=== PATIENT | male | born 1970 | race Caucasian/White ===

== ENCOUNTER 2021-02-02 16:56 | Observation (INO) ==
[2021-02-02 17:45] LABS: Appearance Urine Clear (Clear); Bacteria Urine Automated Negative (Negative); Basophils # (auto) 0.02 K/uL (0-0.2); Basophils % (auto) 0.2 %; Bilirubin Urine Negative (Negative); Blood Urine 1+ (Negative); Color Urine Dark Yellow; Eosinophils # (auto) 0.04 K/uL (0-0.5); Eosinophils % (auto) 0.3 %; Glucose Urine UA Negative (Negative); Immature Granulocytes # (auto) 0.02 K/uL (0.00-0.02); Immature Granulocytes % (auto) 0.2 %; Ketones Urine Trace (Negative); Leukocyte Esterase Urine Trace (Negative); Lymphocytes # (auto) 3.59 K/uL (1.2-3.4); Lymphocytes % (auto) 28.2 %; Mean Corpuscular Hemoglobin 29.3 pg (25-34); Mean Corpuscular Hgb Conc 34.8 g/dL (32-36); Mean Corpuscular Volume 84.1 fL (80-100); Mean Platelet Volume 9.3 fL (7.4-10.4); Monocytes # (auto) 0.83 K/uL (0.11-0.59); Monocytes % (auto) 6.5 %; Neutrophils # (auto) 8.22 K/uL (1.4-6.5); Neutrophils % (auto) 64.6 %; Nitrite Urine Negative (Negative); Platelet Count 284 K/uL (130-400); Protein Urine Negative (Negative); RBC Urine Automated 0-4 /hpf (0-4); RDW Coefficient of Variation 13.6 % (11.5-14.5); RDW Standard Deviation 41.3 fL (36.4-46.3); Red Blood Count 5.47 M/uL (4.7-6.1); Specific Gravity Urine 1.021 (1.000-1.030); Urobilinogen Urine Negative (Negative); White Blood Count 12.72 K/uL (4.8-10.8)
[2021-02-02 18:06] LABS: Albumin Level 3.8 gm/dl (3.4-5.0); Calcium 9.2 mg/dl (8.5-10.1); Creatinine Clr Calc Pharmacy 126.5 ml/min; Est GFR (African American) 99.4 ml/min; Est GFR (Non-African American) 85.7 ml/min; Potassium 3.6 mmol/L (3.5-5.1)
[2021-02-02 18:09] LABS: Albumin Globulin Ratio 0.9 (0.9-2); Bilirubin,Total 0.6 mg/dl (0.2-1); Globulin 4.3 gm/dl (2.5-4.0); Total Protein 8.1 gm/dl (6.4-8.2)
--- NOTE | 2021-02-02 20:41 | Emergency Department Note ---
History of Present Illness General Chief complaint: Abdominal Pain Stated complaint: Constipation, AB PAIN, BLOODY STOOL Time Seen by Provider: 02/02/21 20:22 Source: patient History of Present Illness Provider complaint: Abdominal pain Onset (ago): week(s) (6) Location: abdomen Radiation: non-radiation Pain Consistency: + intermittent Maximum Pain Intensity: 0 Quality: + other (Cramping constipation pain) Relieved By: + other (Having a bowel movement) Associated symptoms: + nausea/vomiting; no chest pain, no cough, no fever/chills, no headaches or no shortness of breath This is a 50-year-old male who presents with a 6-week history of intermittent abdominal pain. Patient states that it feels like a crampy "constipation" pain across his abdomen. It is better after he has a bowel movement. He currently rates it a 0 out of 10 in severity. It only comes on when he has to have a bowel movement. He did feel constipated last week but then started having diarrhea which she describes as very watery with big chunks. His symptoms seem to get worse about 3 days ago. Yesterday he was pushing very hard to have a bowel movement and he started having bleeding with his bowel movements. He describes it as bright red blood. He subsequently went again and he only had blood without stool. He denies any fever, cough or cold symptoms, chest pain, shortness of breath or hematuria or urinary symptoms. He does state that he has had spasms in his lower back as well as the shoulder on and off for 6 weeks as well but also states that he has had back spasms for many years. He states he has not seen a doctor in over a year due to the pandemic. His is not ill with similar symptoms and he denies any recent antibiotic use or foreign travel. Home Medications Medication Instructions Recorded Confirmed Type Unknown Cholesterol Medicine 0.5 tab PO DAILY 02/02/21 02/02/21 History ibuprofen 200 mg tablet (Advil) 200 mg PO Q6H PRN 02/02/21 02/02/21 History Allergies Allergy/AdvReac Type Severity Reaction Status Date / Time grass pollen Allergy Congested, Unverified 02/02/21 21:49 Itchy eyes tree and shrub pollen Allergy Congested, Unverified 02/02/21 21:49 Itchy eyes weed pollen Allergy Congested,Itchy Unverified 02/02/21 21:49 eyes Past Med/Surg History Medical History High cholesterol Social History Smoking Status: Never smoker Feels Safe at Home: Yes Review of Systems See HPI for pertinent positives & negatives. and A total of 10 systems reviewed and were otherwise negative Physical Exam Vital Signs Vital Signs - 24 hr 02/02/21 17:08 02/02/21 21:46 02/02/21 23:00 Temperature 36.7 C Temperature Source Temporal Artery Scan Pulse Rate 80 Pulse Rate [Finger] 70 70 Respiratory Rate 20 18 18 Respiratory Effort / Characteristics Normal for Patient Blood Pressure 161/101 H Blood Pressure [Right Arm] 159/101 H 141/89 H Blood Pressure Mean 121 Blood Pressure Mean [Right Arm] 120 106 Blood Pressure Position [Right Arm] Lying Pulse Oximetry 96 94 97 Oxygen Delivery Method Room Air Room Air Sepsis Recent Fever Within 48 Hours No Sepsis New/Unexplained Change in Mental Status N/A Sepsis Action Taken by Nursing No Action Required Constitutional: Vital signs reviewed. Eyes: Pupils are equal round reactive to light. Conjunctiva are noninjected. ENT: Pharynx is clear without erythema or exudate. Mucous membranes are dry. Neck supple without meningeal signs. Respiratory: Clear to auscultation bilaterally. Breath sounds are equal bilaterally. Cardiovascular: Regular rate and rhythm. No rubs or gallops. GI: Soft, nondistended and nontender. Bowel sounds are present. Rectal: Bright red blood visible around the anus. There is no anal fissures or external hemorrhoids. Musculoskeletal: No peripheral edema. No lower extremity tenderness. Integumentary: No cyanosis. or jaundice. Neurological: The patient is awake and alert. No focal deficits. Psychiatric: Slightly anxious. Course Administered Medications Discontinued Medications Sodium Chloride (Nss 1000ml) 1,000 mls @ 999 mls/hr IV .Q1H1M ONE Stop: 02/02/21 21:44 Last Infusion: 02/02/21 23:59 Dose: 0 mls/hr Documented by: [id number] Admin: 02/02/21 21:39 Dose: 999 mls/hr Documented by: [id number] Ioversol (Optiray 320 125ml) 110 ml IV ONCE ONE Stop: 02/02/21 21:11 Last Admin: 02/02/21 21:10 Dose: 110 ml Documented by: [id number] Medical Decision Making Differential Diagnosis Gastroenteritis, diverticulitis, foodborne illness, colonic mass, hemorrhoids, anal fissure, anemia, IBS Medical Records Attestation: I reviewed the patient's medical records. I did perform a limited focused review of portions of the patient's old chart on the electronic medical record. The patient has had no recent pertinent visits to this hospital. Home Medications Current Medication List: was personally reviewed by me Laboratory Data Attestation: I reviewed the patient's lab results. Result diagrams: 02/02/21 21:01 02/02/21 17:20 Lab Results 02/02/21 02/02/21 02/02/21 Range/Units 17:20 17:20 17:20 WBC 12.72 H (4.8-10.8) K/uL RBC 5.47 (4.7-6.1) M/uL Hgb 16.0 (14.0-18.0) g/dL Hct 46.0 (42-52) % MCV 84.1 (80-100) fL MCH 29.3 (25-34) pg MCHC 34.8 (32-36) g/dL RDW Std Deviation 41.3 (36.4-46.3) fL RDW Coeff of Stephanie 13.6 (11.5-14.5) % Plt Count 284 (130-400) K/uL MPV 9.3 (7.4-10.4) fL Immature Gran % (Auto) 0.2 % Neut % (Auto) 64.6 % Lymph % (Auto) 28.2 % [place] % (Auto) 6.5 % Eos % (Auto) 0.3 % Baso % (Auto) 0.2 % Neut # (Auto) 8.22 H (1.4-6.5) K/uL Lymph # (Auto) 3.59 H (1.2-3.4) K/uL [place] # (Auto) 0.83 H (0.11-0.59) K/uL Eos # (Auto) 0.04 (0-0.5) K/uL Baso # (Auto) 0.02 (0-0.2) K/uL Immature Gran # (Auto) 0.02 (0.00-0.02) K/uL Sodium 139 (136-145) mmol/L Potassium 3.6 (3.5-5.1) mmol/L Chloride 109 H (98-107) mmol/L Carbon Dioxide 26 (21-32) mmol/L Anion Gap 4.0 (3-11) BUN 8 (7-18) mg/dl Creatinine 1.01 (0.6-1.4) mg/dl Est Cr Clr Drug Dosing 126.5 ml/min Est GFR ( Amer) 99.4 ml/min Est GFR (Non-Af Amer) 85.7 ml/min BUN/Creatinine Ratio 8.0 L (10-20) Glucose 106 H (70-99) mg/dl Calcium 9.2 (8.5-10.1) mg/dl Total Bilirubin 0.6 (0.2-1) mg/dl AST 23 (15-37) U/L ALT 42 (12-78) U/L Alkaline Phosphatase 80 (45-117) U/L Total Protein 8.1 (6.4-8.2) gm/dl Albumin 3.8 (3.4-5.0) gm/dl Globulin 4.3 H (2.5-4.0) gm/dl Albumin/Globulin Ratio 0.9 (0.9-2) Lipase 137 (73-393) U/L Urine Color Dark Yellow Urine Appearance Clear (Clear) Urine pH 6.0 (4.5-7.5) Ur Specific [place] 1.021 (1.000-1.030) Urine Protein Negative (Negative) Urine Glucose (UA) Negative (Negative) Urine Ketones Trace H (Negative) Urine Blood 1+ H (Negative) Urine Nitrite Negative (Negative) Urine Bilirubin Negative (Negative) Urine Urobilinogen Negative (Negative) Ur Leukocyte Esterase Trace H (Negative) Urine WBC (Auto) 5-10 H (0-5) /hpf Urine RBC (Auto) 0-4 (0-4) /hpf U Hyaline Cast (Auto) 5-10 H (0-5) /lpf U Epithel Cells (Auto) 10-20 H (0-5) /lpf Urine Bacteria (Auto) Negative (Negative) Stl C. diff Tox B Gene (Neg) COVID-19 Eval Order SARS-CoV-2 (PCR) (Negative) 02/02/21 02/02/21 02/02/21 Range/Units 21:01 21:42 21:42 WBC (4.8-10.8) K/uL RBC (4.7-6.1) M/uL Hgb 15.4 (14.0-18.0) g/dL Hct 44.2 (42-52) % MCV (80-100) fL MCH (25-34) pg MCHC (32-36) g/dL RDW Std Deviation (36.4-46.3) fL RDW Coeff of Stephanie (11.5-14.5) % Plt Count (130-400) K/uL MPV (7.4-10.4) fL Immature Gran % (Auto) % Neut % (Auto) % Lymph % (Auto) % [place] % (Auto) % Eos % (Auto) % Baso % (Auto) % Neut # (Auto) (1.4-6.5) K/uL Lymph # (Auto) (1.2-3.4) K/uL [place] # (Auto) (0.11-0.59) K/uL Eos # (Auto) (0-0.5) K/uL Baso # (Auto) (0-0.2) K/uL Immature Gran # (Auto) (0.00-0.02) K/uL Sodium (136-145) mmol/L Potassium (3.5-5.1) mmol/L Chloride (98-107) mmol/L Carbon Dioxide (21-32) mmol/L Anion Gap (3-11) BUN (7-18) mg/dl Creatinine (0.6-1.4) mg/dl Est Cr Clr Drug Dosing ml/min Est GFR ( Amer) ml/min Est GFR (Non-Af Amer) ml/min BUN/Creatinine Ratio (10-20) Glucose (70-99) mg/dl Calcium (8.5-10.1) mg/dl Total Bilirubin (0.2-1) mg/dl AST (15-37) U/L ALT (12-78) U/L Alkaline Phosphatase (45-117) U/L Total Protein (6.4-8.2) gm/dl Albumin (3.4-5.0) gm/dl Globulin (2.5-4.0) gm/dl Albumin/Globulin Ratio (0.9-2) Lipase (73-393) U/L Urine Color Urine Appearance (Clear) Urine pH (4.5-7.5) Ur Specific [place] (1.000-1.030) Urine Protein (Negative) Urine Glucose (UA) (Negative) Urine Ketones (Negative) Urine Blood (Negative) Urine Nitrite (Negative) Urine Bilirubin (Negative) Urine Urobilinogen (Negative) Ur Leukocyte Esterase (Negative) Urine WBC (Auto) (0-5) /hpf Urine RBC (Auto) (0-4) /hpf U Hyaline Cast (Auto) (0-5) /lpf U Epithel Cells (Auto) (0-5) /lpf Urine Bacteria (Auto) (Negative) Stl C. diff Tox B Gene (Neg) COVID-19 Eval Order Covid19 at [facility] SARS-CoV-2 (PCR) NEGATIVE (Negative) 02/02/21 Range/Units 22:27 WBC (4.8-10.8) K/uL RBC (4.7-6.1) M/uL Hgb (14.0-18.0) g/dL Hct (42-52) % MCV (80-100) fL MCH (25-34) pg MCHC (32-36) g/dL RDW Std Deviation (36.4-46.3) fL RDW Coeff of Stephanie (11.5-14.5) % Plt Count (130-400) K/uL MPV (7.4-10.4) fL Immature Gran % (Auto) % Neut % (Auto) % Lymph % (Auto) % [place] % (Auto) % Eos % (Auto) % Baso % (Auto) % Neut # (Auto) (1.4-6.5) K/uL Lymph # (Auto) (1.2-3.4) K/uL [place] # (Auto) (0.11-0.59) K/uL Eos # (Auto) (0-0.5) K/uL Baso # (Auto) (0-0.2) K/uL Immature Gran # (Auto) (0.00-0.02) K/uL Sodium (136-145) mmol/L Potassium (3.5-5.1) mmol/L Chloride (98-107) mmol/L Carbon Dioxide (21-32) mmol/L Anion Gap (3-11) BUN (7-18) mg/dl Creatinine (0.6-1.4) mg/dl Est Cr Clr Drug Dosing ml/min Est GFR ( Amer) ml/min Est GFR (Non-Af Amer) ml/min BUN/Creatinine Ratio (10-20) Glucose (70-99) mg/dl Calcium (8.5-10.1) mg/dl Total Bilirubin (0.2-1) mg/dl AST (15-37) U/L ALT (12-78) U/L Alkaline Phosphatase (45-117) U/L Total Protein (6.4-8.2) gm/dl Albumin (3.4-5.0) gm/dl Globulin (2.5-4.0) gm/dl Albumin/Globulin Ratio (0.9-2) Lipase (73-393) U/L Urine Color Urine Appearance (Clear) Urine pH (4.5-7.5) Ur Specific [place] (1.000-1.030) Urine Protein (Negative) Urine Glucose (UA) (Negative) Urine Ketones (Negative) Urine Blood (Negative) Urine Nitrite (Negative) Urine Bilirubin (Negative) Urine Urobilinogen (Negative) Ur Leukocyte Esterase (Negative) Urine WBC (Auto) (0-5) /hpf Urine RBC (Auto) (0-4) /hpf U Hyaline Cast (Auto) (0-5) /lpf U Epithel Cells (Auto) (0-5) /lpf Urine Bacteria (Auto) (Negative) Stl C. diff Tox B Gene Negative Cdiff Gene (Neg) COVID-19 Eval Order SARS-CoV-2 (PCR) (Negative) Imaging Data Radiologist's Impression: Abdomen/Pelvis CT 02/02/21 20:40 CT abd pelvis IV con only CLINICAL INDICATION: MN ^C11 125 ML ^abd pain and bleeding eval for divertic. TECHNIQUE: Helical axial images of the abdomen and pelvis were obtained and d isplayed. Automated dose lowering techniques and/or adjustment according to patient size were utilized for this exam. This exam was performed with intravenous contrast. COMPARISON: None available at the time of this dictation. FINDINGS: Lower chest: No acute abnormality Liver: Hepatic steatosis is noted. Gallbladder and biliary tree: No calcified gallstones. Normal caliber wall. No intra- or extrahepatic biliary ductal dilation. Pancreas: Unremarkable, no focal lesions. Spleen: Unremarkable. Adrenals: Unremarkable. Kidneys and ureters: Unremarkable. Bladder: Limited evaluation due to underdistention. Reproductive organs: Unremarkable. Bowel: There is wall thickening and fat stranding of the distal descending colon. The appendix is normal. A hiatal hernia is seen. Lymph nodes Retroperitoneal: There is a round retroperitoneal lymph node measuring approximately 10 mm in diameter near the gastroesophageal junction. Subcentimeter jamey hepatis lymph nodes are seen. Mesenteric: Unremarkable. Pelvic: Unremarkable. Peritoneum: Normal Vessels: Atherosclerotic calcifications are seen. Abdominal wall: Left fat containing inguinal hernia. Bones: Unremarkable. IMPRESSION: 1. Wall thickening and fat stranding is seen surrounding the distal descending colon which likely reflects infectious/inflammatory enteritis. No significant diverticular disease is seen. The appendix is normal. 2. Prominent retroperitoneal lymph node is nonspecific. ACT 112: Negative or not required by law. Electronically signed by: Glenn Webb M.D. 02/02/2021 9:20 PM MDM Narrative I did evaluate the patient as noted above. Patient is presenting with abdominal pain which got worse over the weekend and now he has rectal bleeding. Rectal examination shows gross blood. IV access was established. I did place an order for continuous cardiac monitoring. The monitor showed normal sinus rhythm at a rate of 72 bpm. I did order and review the patient's blood work as noted in the electronic medical record. His white count is elevated at 12.7. Hemoglobin is 16. Platelet count is within normal limits. Electrolytes, LFTs and lipase are unremarkable. I did repeat another H&H which came back 15.4 and 44 respectively. He was then given a liter normal saline IV. I did order a CT of the abdomen and pelvis. I did review the images myself as well as the radiology report as described above. He appears to have a colitis of the descending colon. C. difficile testing is negative. Stool culture is pending. His stool sample looked very bloody. I did discuss the test results with the patient and his . I did recommend hospitalization given his ongoing bleeding and drop in his H&H. He remains hemodynamically stable. I did discuss the case with the hospitalist and case planner. Covid screening test is negative. Impression & Plan Acute GI bleeding, Colitis Discharge Plan Visit Data Chief Complaint: Abdominal Pain Stated Complaint: Constipation, AB PAIN, BLOODY STOOL ED Provider: Seth Cuellar Discharge Problem: Acute GI bleeding, Colitis Patient Disposition: Being Evaluated by Hospitalist Forms Stand Alone Forms: [facility] Prescriptions Prescriptions: No Action ibuprofen [Advil] 200 mg Tablet 200 mg PO Q6H PRN (Reason: Pain) RF: 0 Unknown Cholesterol Medicine 0.5 tab PO DAILY RF: 0 Referrals Referrals: PCP,NO [Physician] -
[2021-02-02] MEDS ORDERED: SODIUM CHLORIDE 0.9% 1000ML 1,000 ML IV ONE (20:44)
[2021-02-02] MEDS ORDERED: OPTIRAY 320 125ml IV ONE (21:10)
[2021-02-02 21:13] LABS: Hematocrit (blood only) 44.2 % (42-52); Hemoglobin 15.4 g/dL (14.0-18.0)
--- NOTE | 2021-02-02 21:22 | CT Scan Report ---
CT abd pelvis IV con only CLINICAL INDICATION: MN ^C11 125 ML ^abd pain and bleeding eval for divertic. TECHNIQUE: Helical axial images of the abdomen and pelvis were obtained and displayed. Automated dose lowering techniques and/or adjustment according to patient size were utilized for this exam. This e xam was performed with intravenous contrast. COMPARISON: None available at the time of this dictation. FINDINGS: Lower chest: No acute abnormality Liver: Hepatic steatosis is noted. Gallbladder and biliary tree: No calcified gallstones. Normal caliber wall. No intra- or extrahepatic biliary ductal dilation. Pancreas: Unremarkable, no focal lesions. Spleen: Unremarkable. Adrenals: Unremarkable. Kidneys and ureters: Unremarkable. Bladder: Limited evaluation due to underdistention. Reproductive organs: Unremarkable. Bowel: There is wall thickening and fat stranding of the distal descending colon. The appendix is nor mal. A hiatal hernia is seen. Lymph nodes Retroperitoneal: There is a round retroperitoneal lymph node measuring approximately 10 mm in diamete r near the gastroesophageal junction. Subcentimeter jamey hepatis lymph nodes are seen. Mesenteric: Unremarkable. Pelvic: Unremarkable. Peritoneum: Normal Vessels: Atherosclerotic calcifications are seen. Abdominal wall: Left fat containing inguinal hernia. Bones: Unremarkable. IMPRESSION: 1. Wall thickening and fat stranding is seen surrounding the distal descending colon which likely re flects infectious/inflammatory enteritis. No significant diverticular disease is seen. The appendix i s normal. 2. Prominent retroperitoneal lymph node is nonspecific. ACT 112: Negative or not required by law. Electronically signed by: Glenn Webb M.D. 02/02/2021 9:20 PM
--- NOTE | 2021-02-03 02:53 | History and Physical Report ---
DATE OF ADMISSION: 02/03/2021. CHIEF COMPLAINT: Abdominal pain. HISTORY OF PRESENT ILLNESS: A 50-year-old male with past medical history significant for hypertension, hyperlipidemia, presents with ongoing abdominal pain since last 2 weeks. Abdominal pain is in the left lower quadrant and he is also having on and off diarrhea and constipation since last 2 weeks. The abdominal pain is improved, but last night, he felt like going to bathroom, but when he tried to move his bowels, some blood has come out. It went on until 4:00 p.m. in the afternoon, when he decided to come to the hospital. Currently, the pain is improved. In the last 2 weeks, he also couple of times, sprained his back and also his right shoulder, but those are improved now. No nausea, no vomiting. Last 2 days, his appetite is down and is feeling sick to his stomach, nauseous. Denies any fever or chills. No chest pain, no shortness of breath, no cough, no headache, no blurred vision, no earache, no runny nose, no sore throat. Normal bladder movements. No swelling in the legs, no rash. ALLERGIES: GRASS POLLEN, TREE AND SHRUB POLLEN, WEED POLLEN. PAST MEDICAL HISTORY: As mentioned above. PAST SURGICAL HISTORY: Right total knee and ankle surgery. MEDICATIONS: ibuprofen p.r.n., cholesterol medicine and blood pressure medicine. FAMILY HISTORY: Significant for mother has heart disease. Positive for father has prostate cancer. SOCIAL HISTORY: No smoking. No alcohol. REVIEW OF SYSTEMS: As per HPI. Rest of review of systems is negative. PHYSICAL EXAMINATION: GENERAL: The patient is morbidly obese, not in acute distress. VITAL SIGNS: Temperature 36.7, pulse 70, respiratory rate 18, blood pressure 141/89, oxygen 97% on room air. HEENT: Pupils equal, round and reactive to light. Oral mucosa moist. NECK: No JVD or neck masses. CARDIOVASCULAR: S1 and S2 heard. Regular rate and rhythm. No murmur, no gallop. RESPIRATORY: Normal AP diameter. No accessory muscle use. No wheezing, no crackles. ABDOMEN: Soft, bowel sounds present. Mild left lower quadrant tenderness. No guarding, rigidity, no distention. CENTRAL NERVOUS SYSTEM: Cranial nerves II-XII grossly intact, nonfocal. EXTREMITIES: No edema, no erythema. LABORATORY DATA: WBC 12.7, hemoglobin 15.4, hematocrit 44.2, platelets 284. Sodium 139, potassium 3.6, chloride 109, bicarbonate 26, BUN 8, creatinine 1, serum glucose 106, calcium 9.2, total bilirubin 0.6, AST 23, ALT 40, alkaline phosphatase 80, lipase 137. Urinalysis, +1 blood. Stool for C. diff negative. SARS-CoV-2 PCR negative. IMAGING DATA: CT of abdomen and pelvis with IV contrast, wall thickening and fat stranding is seen surrounding the distal ascending colon, which likely reflects infectious or inflammatory enteritis. No significant diverticular disease is seen. The appendix is normal. Prominent retroperitoneal lymph node is nonspecific. ASSESSMENT AND PLAN: This is a 50-year-old male who presents with ongoing abdominal pain, diarrhea and constipation, blood in the stools and found to have colitis. 1. Abdominal pain, colitis, bright red blood per rectum. Hemoglobin is stable. Hemodynamically stable. We will empirically start on Cipro and Flagyl. The patient is having alternating diarrhea and constipation. He thinks he had colonoscopy 10 years ago. We will consult GI in the a.m. We will keep him n.p.o., IV fluids, IV Dilaudid p.r.n. 2. History of hypertension. The patient seems to not remember what medications he takes. We will place him on hydralazine p.r.n. 3. Morbid obesity: Needs counseling. 4. Deep venous thrombosis prophylaxis: Sequential compression devices, as the patient had rectal bleed. DISPOSITION: Admit to tele. PT/OT prior to discharge. Social service to help with discharge planning. Job ID: [id number] [facility]
[2021-02-03] MEDS ORDERED: NITROGLYCERIN SL 0.4 MG/TAB TAB SL PRN (03:48)
[2021-02-03] MEDS ORDERED: HYDROmorphone INJ 0.5 MG/0.5 ML SYR IV PRN (03:48)
[2021-02-03] MEDS ORDERED: ACETAMINOPHEN 325 MG TAB PO PRN (03:48)
[2021-02-03] MEDS ORDERED: hydrALAZINE HCL 20 MG/ML VIAL IV PRN (03:48)
[2021-02-03] MEDS ORDERED: ONDANSETRON INJ 2 MG/ML 2 ML VIAL IV PRN (03:48)
[2021-02-03] MEDS ORDERED: FLUARIX QUADRIVALENT 0.5 ML SYR IM ONE (04:49)
[2021-02-03] MEDS: SODIUM CHLORIDE 0.9% 1000ML 1,000 ML IV SCH ×3 (05:10→17:24)
[2021-02-03] MEDS: metroNIDAZOLE 500 MG/100 ML BAG IV SCH ×3 (05:10→20:08)
[2021-02-03 05:52] LABS: Basophils # (auto) 0.02 K/uL (0-0.2); Basophils % (auto) 0.2 %; Eosinophils # (auto) 0.05 K/uL (0-0.5); Eosinophils % (auto) 0.4 %; Hematocrit (blood only) 42.6 % (42-52); Hemoglobin 14.8 g/dL (14.0-18.0); Immature Granulocytes # (auto) 0.02 K/uL (0.00-0.02); Immature Granulocytes % (auto) 0.2 %; Lymphocytes # (auto) 3.85 K/uL (1.2-3.4); Lymphocytes % (auto) 31.6 %; Mean Corpuscular Hemoglobin 29.4 pg (25-34); Mean Corpuscular Hgb Conc 34.7 g/dL (32-36); Mean Corpuscular Volume 84.5 fL (80-100); Monocytes # (auto) 1.07 K/uL (0.11-0.59); Monocytes % (auto) 8.8 %; Neutrophils # (auto) 7.18 K/uL (1.4-6.5); Neutrophils % (auto) 58.8 %; Platelet Count 238 K/uL (130-400); RDW Coefficient of Variation 13.9 % (11.5-14.5); RDW Standard Deviation 42.5 fL (36.4-46.3); Red Blood Count 5.04 M/uL (4.7-6.1); White Blood Count 12.19 K/uL (4.8-10.8)
[2021-02-03 06:20] LABS: BUN Creatinine Ratio 10.1 (10-20); Calcium 8.5 mg/dl (8.5-10.1); Creatinine Clr Calc Pharmacy 143.5 ml/min; Est GFR (African American) 114.7 ml/min; Magnesium 2.1 mg/dl (1.8-2.4); Potassium 3.2 mmol/L (3.5-5.1)
[2021-02-03] MEDS: CIPROFLOXACIN / D5W 400 MG/200 ML BAG IV SCH ×2 (06:30→17:24)
--- NOTE | 2021-02-03 11:29 | Gastrointestinal Consultation ---
Date of Consultation February 03, 2021 Assessment & Plan (1) Colitis: 50 year old male with abd pain, cramping for 1-2 weeks w/ change in bowel habits and hematochezia/ HGB stable. Conservative measures w/ IV fluids, antiemetics, analgesia Submit stool culture and stool for c.diff Trend HGB Transfuse PRN Trial of Bentyl 10 mg TID PRN OP colonoscopy Supervising Physician Co-Signing Physician Notes Late entry: Patient was seen and examined on 02/03 with RADHA Tolentino whose note reflects our findings and plan. Awaiting stool cultures. Will arrange an outpatient colonoscopy. H/H is stable. History of Present Illness Reason for Consultation: rectal bleeding Requesting Physician: Ta Attending Physician: Travis Chappell MD History of Present Illness 50 year old male w/ history of HTN, hyperlipidemia, presents with ongoing abdominal pain since last 2 weeks. Juany is lower abd, left > right. Associtedw/ change in bowel habits, alternating diarrhea/constipation. Suggests yesterday started with rectal bleeding. BRB. No melena. No nausea, vomiting. No GERD. Denies family history of IBD He had colonoscopy years ago, unsure why Allergies Allergy/AdvReac Type Severity Reaction Status Date / Time grass pollen Allergy Congested, Unverified 02/02/21 21:49 Itchy eyes tree and shrub pollen Allergy Congested, Unverified 02/02/21 21:49 Itchy eyes weed pollen Allergy Congested,Itchy Unverified 02/02/21 21:49 eyes Home Medications Medication Instructions Recorded Confirmed Type Unknown Cholesterol Medicine 0.5 tab PO DAILY 02/02/21 02/02/21 History ibuprofen 200 mg tablet (Advil) 200 mg PO Q6H PRN 02/02/21 02/02/21 History Patient History Medical History High cholesterol Social History Smoking Status: Never smoker Second Hand Exposure: No; Do You Dip or Chew Tobacco: Yes; Hx Alcohol Use: No Hx Substance Use: No Preferred Language: Welsh Communication Ability: Effective 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 Beliefs That Will Affect Care: None Current Living Situation: Spouse Other Information That Helps Us Care for You: No Feels Safe at Home: Yes Safety Concerns: Feels Safe At This Time Assistive Devices: Glasses Review of Systems Review of Systems: All systems reviewed & are unremarkable except as noted in HPI & below Physical Exam Constitutional: WD/WN, vitals as above Respiratory: normal respiratory effort, lungs clear to auscultation Cardiovascular: RRR, no murmur, no edema Gastrointestinal (Abdomen): normal bowel sounds, soft, nontender, no hepatosplenomegaly Skin: no rashes, warm and dry Results & Data ([facility]) Vital Signs (Past 12 Hours) Vital Signs Temp Pulse Resp BP Pulse Ox 02/03/21 08:37 36.6 C 79 18 119/90 95 02/03/21 04:33 37 C 72 18 122/82 95 Laboratory Results 02/03/21 02/03/21 02/02/21 Range/Units 05:40 05:40 22:27 WBC 12.19 H (4.8-10.8) K/uL RBC 5.04 (4.7-6.1) M/uL Hgb 14.8 (14.0-18.0) g/dL Hct 42.6 (42-52) % MCV 84.5 (80-100) fL MCH 29.4 (25-34) pg MCHC 34.7 (32-36) g/dL RDW Std Deviation 42.5 (36.4-46.3) fL RDW Coeff of Stephaine 13.9 (11.5-14.5) % Plt Count 238 (130-400) K/uL MPV 9.0 (7.4-10.4) fL Immature Gran % (Auto) 0.2 % Neut % (Auto) 58.8 % Lymph % (Auto) 31.6 % [place] % (Auto) 8.8 % Eos % (Auto) 0.4 % Baso % (Auto) 0.2 % Neut # (Auto) 7.18 H (1.4-6.5) K/uL Lymph # (Auto) 3.85 H (1.2-3.4) K/uL [place] # (Auto) 1.07 H (0.11-0.59) K/uL Eos # (Auto) 0.05 (0-0.5) K/uL Baso # (Auto) 0.02 (0-0.2) K/uL Immature Gran # (Auto) 0.02 (0.00-0.02) K/uL Sodium 140 (136-145) mmol/L Potassium 3.2 L (3.5-5.1) mmol/L Chloride 109 H (98-107) mmol/L Carbon Dioxide 25 (21-32) mmol/L Anion Gap 6.0 (3-11) BUN 9 (7-18) mg/dl Creatinine 0.89 (0.6-1.4) mg/dl Est Cr Clr Drug Dosing 143.5 ml/min Est GFR ( Amer) 114.7 ml/min Est GFR (Non-Af Amer) 99.0 ml/min BUN/Creatinine Ratio 10.1 (10-20) Glucose 107 H (70-99) mg/dl Calcium 8.5 (8.5-10.1) mg/dl Magnesium 2.1 (1.8-2.4) mg/dl Total Bilirubin (0.2-1) mg/dl AST (15-37) U/L ALT (12-78) U/L Alkaline Phosphatase (45-117) U/L Total Protein (6.4-8.2) gm/dl Albumin (3.4-5.0) gm/dl Globulin (2.5-4.0) gm/dl Albumin/Globulin Ratio (0.9-2) Lipase (73-393) U/L Urine Color Urine Appearance (Clear) Urine pH (4.5-7.5) Ur Specific [place] (1.000-1.030) Urine Protein (Negative) Urine Glucose (UA) (Negative) Urine Ketones (Negative) Urine Blood (Negative) Urine Nitrite (Negative) Urine Bilirubin (Negative) Urine Urobilinogen (Negative) Ur Leukocyte Esterase (Negative) Urine WBC (Auto) (0-5) /hpf Urine RBC (Auto) (0-4) /hpf U Hyaline Cast (Auto) (0-5) /lpf U Epithel Cells (Auto) (0-5) /lpf Urine Bacteria (Auto) (Negative) Stl C. diff Tox B Gene Negative Cdiff Gene (Neg) COVID-19 Eval Order SARS-CoV-2 (PCR) (Negative) 02/02/21 02/02/21 02/02/21 Range/Units 21:42 21:42 21:01 WBC (4.8-10.8) K/uL RBC (4.7-6.1) M/uL Hgb 15.4 (14.0-18.0) g/dL Hct 44.2 (42-52) % MCV (80-100) fL MCH (25-34) pg MCHC (32-36) g/dL RDW Std Deviation (36.4-46.3) fL RDW Coeff of Stephanie (11.5-14.5) % Plt Count (130-400) K/uL MPV (7.4-10.4) fL Immature Gran % (Auto) % Neut % (Auto) % Lymph % (Auto) % [place] % (Auto) % Eos % (Auto) % Baso % (Auto) % Neut # (Auto) (1.4-6.5) K/uL Lymph # (Auto) (1.2-3.4) K/uL [place] # (Auto) (0.11-0.59) K/uL Eos # (Auto) (0-0.5) K/uL Baso # (Auto) (0-0.2) K/uL Immature Gran # (Auto) (0.00-0.02) K/uL Sodium (136-145) mmol/L Potassium (3.5-5.1) mmol/L Chloride (98-107) mmol/L Carbon Dioxide (21-32) mmol/L Anion Gap (3-11) BUN (7-18) mg/dl Creatinine (0.6-1.4) mg/dl Est Cr Clr Drug Dosing ml/min Est GFR ( Amer) ml/min Est GFR (Non-Af Amer) ml/min BUN/Creatinine Ratio (10-20) Glucose (70-99) mg/dl Calcium (8.5-10.1) mg/dl Magnesium (1.8-2.4) mg/dl Total Bilirubin (0.2-1) mg/dl AST (15-37) U/L ALT (12-78) U/L Alkaline Phosphatase (45-117) U/L Total Protein (6.4-8.2) gm/dl Albumin (3.4-5.0) gm/dl Globulin (2.5-4.0) gm/dl Albumin/Globulin Ratio (0.9-2) Lipase (73-393) U/L Urine Color Urine Appearance (Clear) Urine pH (4.5-7.5) Ur Specific [place] (1.000-1.030) Urine Protein (Negative) Urine Glucose (UA) (Negative) Urine Ketones (Negative) Urine Blood (Negative) Urine Nitrite (Negative) Urine Bilirubin (Negative) Urine Urobilinogen (Negative) Ur Leukocyte Esterase (Negative) Urine WBC (Auto) (0-5) /hpf Urine RBC (Auto) (0-4) /hpf U Hyaline Cast (Auto) (0-5) /lpf U Epithel Cells (Auto) (0-5) /lpf Urine Bacteria (Auto) (Negative) Stl C. diff Tox B Gene (Neg) COVID-19 Eval Order Covid19 at [facility] SARS-CoV-2 (PCR) NEGATIVE (Negative) 02/02/21 02/02/21 02/02/21 Range/Units 17:20 17:20 17:20 WBC 12.72 H (4.8-10.8) K/uL RBC 5.47 (4.7-6.1) M/uL Hgb 16.0 (14.0-18.0) g/dL Hct 46.0 (42-52) % MCV 84.1 (80-100) fL MCH 29.3 (25-34) pg MCHC 34.8 (32-36) g/dL RDW Std Deviation 41.3 (36.4-46.3) fL RDW Coeff of Stephanie 13.6 (11.5-14.5) % Plt Count 284 (130-400) K/uL MPV 9.3 (7.4-10.4) fL Immature Gran % (Auto) 0.2 % Neut % (Auto) 64.6 % Lymph % (Auto) 28.2 % [place] % (Auto) 6.5 % Eos % (Auto) 0.3 % Baso % (Auto) 0.2 % Neut # (Auto) 8.22 H (1.4-6.5) K/uL Lymph # (Auto) 3.59 H (1.2-3.4) K/uL [place] # (Auto) 0.83 H (0.11-0.59) K/uL Eos # (Auto) 0.04 (0-0.5) K/uL Baso # (Auto) 0.02 (0-0.2) K/uL Immature Gran # (Auto) 0.02 (0.00-0.02) K/uL Sodium 139 (136-145) mmol/L Potassium 3.6 (3.5-5.1) mmol/L Chloride 109 H (98-107) mmol/L Carbon Dioxide 26 (21-32) mmol/L Anion Gap 4.0 (3-11) BUN 8 (7-18) mg/dl Creatinine 1.01 (0.6-1.4) mg/dl Est Cr Clr Drug Dosing 126.5 ml/min Est GFR ( Amer) 99.4 ml/min Est GFR (Non-Af Amer) 85.7 ml/min BUN/Creatinine Ratio 8.0 L (10-20) Glucose 106 H (70-99) mg/dl Calcium 9.2 (8.5-10.1) mg/dl Magnesium (1.8-2.4) mg/dl Total Bilirubin 0.6 (0.2-1) mg/dl AST 23 (15-37) U/L ALT 42 (12-78) U/L Alkaline Phosphatase 80 (45-117) U/L Total Protein 8.1 (6.4-8.2) gm/dl Albumin 3.8 (3.4-5.0) gm/dl Globulin 4.3 H (2.5-4.0) gm/dl Albumin/Globulin Ratio 0.9 (0.9-2) Lipase 137 (73-393) U/L Urine Color Dark Yellow Urine Appearance Clear (Clear) Urine pH 6.0 (4.5-7.5) Ur Specific [place] 1.021 (1.000-1.030) Urine Protein Negative (Negative) Urine Glucose (UA) Negative (Negative) Urine Ketones Trace H (Negative) Urine Blood 1+ H (Negative) Urine Nitrite Negative (Negative) Urine Bilirubin Negative (Negative) Urine Urobilinogen Negative (Negative) Ur Leukocyte Esterase Trace H (Negative) Urine WBC (Auto) 5-10 H (0-5) /hpf Urine RBC (Auto) 0-4 (0-4) /hpf U Hyaline Cast (Auto) 5-10 H (0-5) /lpf U Epithel Cells (Auto) 10-20 H (0-5) /lpf Urine Bacteria (Auto) Negative (Negative) Stl C. diff Tox B Gene (Neg) COVID-19 Eval Order SARS-CoV-2 (PCR) (Negative)
[2021-02-03] MEDS: PANTOprazole 40 MG in SYRINGE 0 ML IV SCH (13:22)
[2021-02-03 13:56] LABS: Hematocrit (blood only) 41.2 % (42-52); Hemoglobin 14.1 g/dL (14.0-18.0)
[2021-02-03 17:28] LABS: Hematocrit (blood only) 40.4 % (42-52); Hemoglobin 14.1 g/dL (14.0-18.0)
[2021-02-04] MEDS: metroNIDAZOLE 500 MG/100 ML BAG IV SCH ×3 (03:22→20:30)
[2021-02-04] MEDS: SODIUM CHLORIDE 0.9% 1000ML 1,000 ML IV SCH ×2 (04:49→11:04)
[2021-02-04] MEDS: CIPROFLOXACIN / D5W 400 MG/200 ML BAG IV SCH ×2 (04:49→15:38)
[2021-02-04 07:21] LABS: Basophils # (auto) 0.02 K/uL (0-0.2); Basophils % (auto) 0.2 %; Eosinophils # (auto) 0.11 K/uL (0-0.5); Eosinophils % (auto) 1.2 %; Hematocrit (blood only) 39.1 % (42-52); Hemoglobin 13.7 g/dL (14.0-18.0); Immature Granulocytes # (auto) 0.01 K/uL (0.00-0.02); Immature Granulocytes % (auto) 0.1 %; Lymphocytes # (auto) 3.32 K/uL (1.2-3.4); Mean Corpuscular Hemoglobin 29.1 pg (25-34); Mean Corpuscular Volume 83.2 fL (80-100); Mean Platelet Volume 9.1 fL (7.4-10.4); Monocytes % (auto) 6.5 %; Neutrophils # (auto) 5.16 K/uL (1.4-6.5); Platelet Count 224 K/uL (130-400); RDW Coefficient of Variation 13.8 % (11.5-14.5); RDW Standard Deviation 41.7 fL (36.4-46.3); White Blood Count 9.22 K/uL (4.8-10.8)
[2021-02-04 07:50] LABS: BUN Creatinine Ratio 8.4 (10-20); Calcium 8.4 mg/dl (8.5-10.1); Creatinine Clr Calc Pharmacy 133.9 ml/min; Est GFR (Non-African American) 92.3 ml/min; Potassium 3.1 mmol/L (3.5-5.1)
[2021-02-04] MEDS ORDERED: POTASSIUM CHLORIDE CRTAB 20 MEQ TABCR PO STA (08:24)
--- NOTE | 2021-02-04 09:52 | Gastroenterology Progress Note ---
Date of Service February 04, 2021 Assessment & Plan (1) Colitis: Plan: 50 year old male with abd pain, cramping for 1-2 weeks w/ change in bowel habits and hematochezia/ HGB stable. Conservative measures w/ IV fluids, antiemetics, analgesia c.diff negative culture pending Trend HGB Transfuse PRN Trial of Bentyl 10 mg TID PRN OP colonoscopy Thank you for allowing us to participate in the care of this patient. Please call with any acute changes, questions or concerns. Please see addendum below with additional recommendation from my supervising physician. Admission and Anticipated Discharge Date Admission Date: February 03, 2021 Supervising Physician Co-Signing Physician Notes I have seen and examined the patient with RADHA Tolentino whose note reflects our findings and plan. Awaiting stool cultures. C diff is negative. Will arrange an outpatient colonoscopy. H/H is stable. Conservative measures. Please call with questions. Subjective Feeling slightly better Less pain Passing gas which helps his cramping 1 BM since evaluation yesterday Less blood than prior c.diff negative culture pending Review of Systems Review of Systems: All systems reviewed & are unremarkable except as noted in HPI & below Physical Exam Constitutional: WD/WN, vitals as above Respiratory: normal respiratory effort, lungs clear to auscultation Cardiovascular: RRR, no murmur, no edema Gastrointestinal (Abdomen): normal bowel sounds, soft, nontender, no hepatosplenomegaly Skin: no rashes, warm and dry Results & Data ([facility]) Vital Signs (Past 12 Hours) Vital Signs Temp Pulse Pulse Resp BP Pulse Ox 02/04/21 07:46 36.6 C 71 18 147/98 H 96 02/04/21 03:48 37.0 C 76 18 121/83 95 02/04/21 00:07 37.0 C 74 16 117/83 97 02/03/21 23:06 72 Laboratory Results 02/04/21 02/04/21 02/03/21 Range/Units 06:56 06:56 16:56 WBC 9.22 (4.8-10.8) K/uL RBC 4.70 (4.7-6.1) M/uL Hgb 13.7 L 14.1 (14.0-18.0) g/dL Hct 39.1 L 40.4 L (42-52) % MCV 83.2 (80-100) fL MCH 29.1 (25-34) pg MCHC 35.0 (32-36) g/dL RDW Std Deviation 41.7 (36.4-46.3) fL RDW Coeff of Stephanie 13.8 (11.5-14.5) % Plt Count 224 (130-400) K/uL MPV 9.1 (7.4-10.4) fL Immature Gran % (Auto) 0.1 % Neut % (Auto) 56.0 % Lymph % (Auto) 36.0 % [place] % (Auto) 6.5 % Eos % (Auto) 1.2 % Baso % (Auto) 0.2 % Neut # (Auto) 5.16 (1.4-6.5) K/uL Lymph # (Auto) 3.32 (1.2-3.4) K/uL [place] # (Auto) 0.60 H (0.11-0.59) K/uL Eos # (Auto) 0.11 (0-0.5) K/uL Baso # (Auto) 0.02 (0-0.2) K/uL Immature Gran # (Auto) 0.01 (0.00-0.02) K/uL Sodium 139 (136-145) mmol/L Potassium 3.1 L (3.5-5.1) mmol/L Chloride 107 (98-107) mmol/L Carbon Dioxide 25 (21-32) mmol/L Anion Gap 7.0 (3-11) BUN 8 (7-18) mg/dl Creatinine 0.95 (0.6-1.4) mg/dl Est Cr Clr Drug Dosing 133.9 ml/min Est GFR ( Amer) 107.0 ml/min Est GFR (Non-Af Amer) 92.3 ml/min BUN/Creatinine Ratio 8.4 L (10-20) Glucose 106 H (70-99) mg/dl Calcium 8.4 L (8.5-10.1) mg/dl 02/03/21 Range/Units 13:32 WBC (4.8-10.8) K/uL RBC (4.7-6.1) M/uL Hgb 14.1 (14.0-18.0) g/dL Hct 41.2 L (42-52) % MCV (80-100) fL MCH (25-34) pg MCHC (32-36) g/dL RDW Std Deviation (36.4-46.3) fL RDW Coeff of Stephanie (11.5-14.5) % Plt Count (130-400) K/uL MPV (7.4-10.4) fL Immature Gran % (Auto) % Neut % (Auto) % Lymph % (Auto) % [place] % (Auto) % Eos % (Auto) % Baso % (Auto) % Neut # (Auto) (1.4-6.5) K/uL Lymph # (Auto) (1.2-3.4) K/uL [place] # (Auto) (0.11-0.59) K/uL Eos # (Auto) (0-0.5) K/uL Baso # (Auto) (0-0.2) K/uL Immature Gran # (Auto) (0.00-0.02) K/uL Sodium (136-145) mmol/L Potassium (3.5-5.1) mmol/L Chloride (98-107) mmol/L Carbon Dioxide (21-32) mmol/L Anion Gap (3-11) BUN (7-18) mg/dl Creatinine (0.6-1.4) mg/dl Est Cr Clr Drug Dosing ml/min Est GFR ( Amer) ml/min Est GFR (Non-Af Amer) ml/min BUN/Creatinine Ratio (10-20) Glucose (70-99) mg/dl Calcium (8.5-10.1) mg/dl
--- NOTE | 2021-02-04 10:48 | Hospitalist Progress Note ---
Date of Service February 04, 2021 Assessment & Plan (1) Colitis: Plan: Admitted with the abdominal pain for the last 2 weeks with associated blood in the stool CT of the abdomen did not show distal descending colon colitis consistent with infectious/inflammatory CTA did not show any evidence of ischemic colitis Appreciate GI input and recommendation Has been on intravenous Cipro and Flagyl Clinically better (2) Acute GI bleeding: Plan: Has had rectal bleed, bright red blood GI input appreciated Awaiting stool testing Hemoglobin remains stable Remains on clears Possible colonoscopy if bleeding continues (3) Hypertension: Plan: Blood pressure is controlled remains on the upper side (4) Morbid obesity with BMI of 45.0-49.9, adult: Plan: Counseling DVT prophylaxis-SCDs CODE STATUS Full Admission and Anticipated Discharge Date Admission Date: February 03, 2021 Subjective 02/04/2021 The patient was seen and examined in telemetry unit He has had bright light blood per rectum last night but since then has not had any bowel movement Denies any significant abdominal pain and/or distention Review of Systems Review of Systems: Is reviewed and are unremarkable except as noted below Physical Exam Physical Exam: Sitting at the edge of the bed without any acute distress Constitutional: well developed, well nourished, + ill appearing and + obese Eyes: PERRL, conjunctivae normal, anicteric sclerae ENMT: external ear and nose normal, oropharynx normal Neck: trachea midline, no thyromegaly Respiratory: no respiratory distress and no cough Auscultation: lungs clear to auscultation bilaterally and + diminished lung sounds Cardiovascular: Rate/Rhythm: regular rate and regular rhythm; not tachycardic Heart Sounds: normal S1 and normal S2; no murmur Extremities: + edema (Trace edema bilaterally) Gastrointestinal (Abdomen): Inspection/Auscultation: + abdomen distended and normal bowel sounds Percussion/Palpation: + abdomen tender (Minimally tender epigastrium and right lower quadrant) and abdomen soft; no guarding and abdomen not rigid Musculoskeletal: No acute arthritis in any joint Neurologic: Alert, awake and oriented x3. No focal sensory and motor deficit appreciated Results & Data Results & Data ([facility]) Vital Signs (Past 12 Hours) Vital Signs Temp Pulse Pulse Resp BP Pulse Ox 02/04/21 07:46 36.6 C 71 18 147/98 H 96 02/04/21 03:48 37.0 C 76 18 121/83 95 10/14/21 00:07 37.0 C 74 16 117/83 97 02/03/21 23:06 72 Laboratory Results Short CBC 02/03/21 02/03/21 02/04/21 Range/Units 13:32 16:56 06:56 WBC 9.22 (4.8-10.8) K/uL Hgb 14.1 14.1 13.7 L (14.0-18.0) g/dL Hct 41.2 L 40.4 L 39.1 L (42-52) % Plt Count 224 (130-400) K/uL BMP 02/04/21 06:56 Sodium 139 Potassium 3.1 L Chloride 107 Carbon Dioxide 25 BUN 8 Creatinine 0.95 Glucose 106 H Calcium 8.4 L Medications Administered Current Inpatient Medications Acetaminophen (Acetaminophen 325 Mg Tab) 650 mg PO Q4H PRN PRN Reason: Pain or Fever Stop: 03/05/21 03:47 Hydralazine HCl (Hydralazine Hcl 20 Mg/Ml Vial) 5 mg IV Q6H PRN PRN Reason: Hypertension Stop: 03/05/21 03:47 Hydromorphone HCl (Hydromorphone Inj 0.5 Mg/0.5 Ml Syr) 0.5 mg IV Q4H PRN PRN Reason: Pain Stop: 02/17/21 03:47 Sodium Chloride (Nss 1000ml) 1,000 mls @ 125 mls/hr IV .Q8H LEONARD Stop: 03/05/21 03:47 Last Admin: 02/04/21 04:49 Dose: 125 mls/hr Documented by: Ciprofloxacin (Cipro / D5w) 400 mg in 200 mls @ 100 mls/hr IV Q12H [facility]; Protocol Stop: 02/13/21 03:59 Last Infusion: 02/04/21 06:32 Dose: Infused Documented by: Metronidazole (Flagyl) 500 mg in 100 mls @ 100 mls/hr IV Q8H LEONARD Stop: 02/13/21 03:59 Last Infusion: 02/04/21 04:53 Dose: Infused Documented by: Pantoprazole Sodium 40 mg/ (Syringe) 10 mls @ 5 mls/min IV DAILY@1100 LEONARD Stop: 03/05/21 10:59 Last Admin: 02/03/21 13:22 Dose: 5 mls/min Documented by: Nitroglycerin (Nitroglycerin Sl 0.4 Mg/Tab Tab) 0.4 mg SL UD PRN PRN Reason: Chest Pain Stop: 03/05/21 03:47 Ondansetron HCl (Ondansetron Inj 2 Mg/Ml 2 Ml Vial) 4 mg IV Q6H PRN PRN Reason: Nausea Stop: 03/05/21 03:47
[2021-02-04] MEDS: PANTOprazole 40 MG in SYRINGE 0 ML IV SCH (11:04)
[2021-02-05] MEDS: SODIUM CHLORIDE 0.9% 1000ML 1,000 ML IV SCH ×2 (03:19→10:07)
[2021-02-05] MEDS: metroNIDAZOLE 500 MG/100 ML BAG IV SCH ×2 (03:45→11:10)
[2021-02-05] MEDS: CIPROFLOXACIN / D5W 400 MG/200 ML BAG IV SCH (04:53)
[2021-02-05 06:29] LABS: Basophils # (auto) 0.02 K/uL (0-0.2); Basophils % (auto) 0.2 %; Eosinophils # (auto) 0.15 K/uL (0-0.5); Eosinophils % (auto) 1.6 %; Hematocrit (blood only) 39.1 % (42-52); Hemoglobin 13.7 g/dL (14.0-18.0); Immature Granulocytes # (auto) 0.02 K/uL (0.00-0.02); Immature Granulocytes % (auto) 0.2 %; Lymphocytes # (auto) 3.63 K/uL (1.2-3.4); Lymphocytes % (auto) 38.6 %; Mean Corpuscular Volume 82.7 fL (80-100); Mean Platelet Volume 9.1 fL (7.4-10.4); Monocytes # (auto) 0.79 K/uL (0.11-0.59); Monocytes % (auto) 8.4 %; Platelet Count 236 K/uL (130-400); RDW Coefficient of Variation 13.8 % (11.5-14.5); RDW Standard Deviation 41.7 fL (36.4-46.3); Red Blood Count 4.73 M/uL (4.7-6.1); White Blood Count 9.41 K/uL (4.8-10.8)
[2021-02-05 07:08] LABS: BUN Creatinine Ratio 5.4 (10-20); Calcium 8.5 mg/dl (8.5-10.1); Creatinine Clr Calc Pharmacy 133.1 ml/min; Est GFR (African American) 105.6 ml/min; Est GFR (Non-African American) 91.2 ml/min; Potassium 3.4 mmol/L (3.5-5.1)
[2021-02-05] MEDS ORDERED: POTASSIUM CHLORIDE CRTAB 20 MEQ TABCR PO STA (09:02)
[2021-02-05] MEDS ORDERED: Nursing to Pharmacy Communication SCH (10:15)
[2021-02-05] MEDS ORDERED: PANTOprazole 40 MG TAB PO SCH (11:00)
--- NOTE | 2021-02-05 12:44 | Hospitalist Progress Note ---
Date of Service February 05, 2021 Assessment & Plan (1) Colitis: Plan: Admitted with the abdominal pain for the last 2 weeks with associated blood in the stool CT of the abdomen did not show distal descending colon colitis consistent with infectious/inflammatory CTA did not show any evidence of ischemic colitis Appreciate GI input and recommendation Has been on intravenous Cipro and Flagyl Clinically better and has been tolerating regular diet His C. difficile has been negative We will change antibiotic to oral Cipro and Flagyl and will be discharged home this afternoon (2) Acute GI bleeding: Plan: Has had rectal bleed, bright red blood GI input appreciated Awaiting stool testing Hemoglobin remains stable Remains on clears Possible colonoscopy if bleeding continues No more blood in the stool-he will have colonoscopy as an outpatient as planned (3) Hypertension: Plan: Blood pressure is controlled remains on the upper side Remains controlled (4) Morbid obesity with BMI of 45.0-49.9, adult: Plan: Counseling Strongly advised to follow diet and regular exercise to improve weight DVT prophylaxis-SCDs CODE STATUS Full Admission and Anticipated Discharge Date Admission Date: February 03, 2021 Subjective 02/04/2021 The patient was seen and examined in telemetry unit He has had bright light blood per rectum last night but since then has not had any bowel movement Denies any significant abdominal pain and/or distention 02/05/2021 The patient was seen and examined in telemetry unit He has been feeling much better and abdominal pain is almost gone He has been having bowel movement without any blood in it and the diarrhea Denies any fever and no chills Review of Systems Review of Systems: Is reviewed and are unremarkable except as noted below Gastrointestinal: No abdominal distention and/or pain Physical Exam Physical Exam: Lying in bed comfortably Constitutional: well developed, well nourished, + ill appearing and + obese Eyes: PERRL, conjunctivae normal, anicteric sclerae ENMT: external ear and nose normal, oropharynx normal Neck: trachea midline, no thyromegaly Respiratory: no respiratory distress and no cough Auscultation: lungs clear to auscultation bilaterally and + diminished lung sounds Cardiovascular: Rate/Rhythm: regular rate and regular rhythm; not tachycardic Heart Sounds: normal S1 and normal S2; no murmur Extremities: + edema (Trace edema bilaterally) Gastrointestinal (Abdomen): Inspection/Auscultation: + abdomen distended and normal bowel sounds Percussion/Palpation: abdomen soft; abdomen nontender (Minimally tender epigastrium and right lower quadrant), no guarding and abdomen not rigid Musculoskeletal: No acute arthritis in any joint Neurologic: Alert, awake and oriented x3. No focal sensory and motor deficit appreciated Lymphatic: no cervical or axillary lymphadenopathy Results & Data Results & Data ([facility]) Vital Signs (Past 12 Hours) Vital Signs Temp Pulse Pulse Resp BP Pulse Ox 02/05/21 11:05 36.7 C 66 18 138/88 96 02/05/21 08:00 36.8 C 58 L 66 20 141/63 H 95 02/05/21 04:41 36.9 C 63 20 134/84 95 02/05/21 00:37 66 Laboratory Results Short CBC 02/05/21 Range/Units 06:17 WBC 9.41 (4.8-10.8) K/uL Hgb 13.7 L (14.0-18.0) g/dL Hct 39.1 L (42-52) % Plt Count 236 (130-400) K/uL BMP 02/05/21 06:17 Sodium 139 Potassium 3.4 L Chloride 110 H Carbon Dioxide 25 BUN 5 L Creatinine 0.96 Glucose 106 H Calcium 8.5 Medications Administered Current Inpatient Medications Acetaminophen (Acetaminophen 325 Mg Tab) 650 mg PO Q4H PRN PRN Reason: Pain or Fever Stop: 03/05/21 03:47 Ciprofloxacin (Ciprofloxacin 500 Mg Tab) 500 mg PO BID [facility] Stop: 02/15/21 20:59 Hydralazine HCl (Hydralazine Hcl 20 Mg/Ml Vial) 5 mg IV Q6H PRN PRN Reason: Hypertension Stop: 03/05/21 03:47 Hydromorphone HCl (Hydromorphone Inj 0.5 Mg/0.5 Ml Syr) 0.5 mg IV Q4H PRN PRN Reason: Pain Stop: 02/17/21 03:47 Metronidazole (Metronidazole 500 Mg Tab) 500 mg PO BID LEONARD Stop: 02/15/21 20:59 Nitroglycerin (Nitroglycerin Sl 0.4 Mg/Tab Tab) 0.4 mg SL UD PRN PRN Reason: Chest Pain Stop: 03/05/21 03:47 Pantoprazole Sodium (Pantoprazole 40 Mg Tab) 40 mg PO DAILY LEONARD Stop: 03/07/21 10:59 Last Admin: 02/05/21 10:52 Dose: 40 mg Documented by:
[2021-02-05] MEDS ORDERED: CIPROFLOXACIN 500 MG TAB PO SCH (21:00)
[2021-02-05] MEDS ORDERED: metroNIDAZOLE 500 MG TAB PO SCH (21:00)
--- NOTE | 2021-02-06 07:21 | Discharge Summary ---
Date of Service February 06, 2021 Admission HPI Per Admitting Provider DICTATED BY: Bert Kay MD DATE OF ADMISSION: 02/03/2021. CHIEF COMPLAINT: Abdominal pain. HISTORY OF PRESENT ILLNESS: A 50-year-old male with past medical history significant for hypertension, hyperlipidemia, presents with ongoing abdominal pain since last 2 weeks. Abdominal pain is in the left lower quadrant and he is also having on and off diarrhea and constipation since last 2 weeks. The abd ominal pain is improved, but last night, he felt like going to bathroom, but when he tried to move his bowels, some blood has come out. It went on until 4:00 p.m. in the afternoon, when he decided to come to the hospital. Currently, the pain is improved. In the last 2 weeks, he also couple of times, sprained his back and also his right shoulder, but those are improved now. No nausea, no vomiting. Last 2 days, his appetite is down and is feeling sick to his stomach, nauseous. Denies any fever or chills. No chest pain, no shortness of breath, no cough, no headache, no blurred vision, no earache, no runny nose, no sore throat. Normal bladder movements. No swelling in the legs, no rash. Admission Exam Per Admitting Provider GENERAL: The patient is morbidly obese, not in acute distress. VITAL SIGNS: Temperature 36.7, pulse 70, respiratory rate 18, blood pressure 141/89, oxygen 97% on room air. HEENT: Pupils equal, round and reactive to light. Oral mucosa moist. NECK: No JVD or neck masses. CARDIOVASCULAR: S1 and S2 heard. Regular rate and rhythm. No murmur, no gallop. RESPIRATORY: Normal AP diameter. No accessory muscle use. No wheezing, no crackles. ABDOMEN: Soft, bowel sounds present. Mild left lower quadrant tenderness. No guarding, rigidity, no distention. CENTRAL NERVOUS SYSTEM: Cranial nerves II-XII grossly intact, nonfocal. EXTREMITIES: No edema, no erythema. Principal Diagnosis Descending colon colitis, acute GI bleed-stopped, hypertension Discharge Exam Constitutional well developed, well nourished, + ill appearing and + obese Eyes PERRL, conjunctivae normal, anicteric sclerae ENMT external ear and nose normal, oropharynx normal Neck trachea midline, no thyromegaly Respiratory no respiratory distress and no cough Auscultation: lungs clear to auscultation bilaterally and + diminished lung sounds Cardiovascular Rate/Rhythm: regular rate and regular rhythm; not tachycardic Heart Sounds: normal S1 and normal S2; no murmur Extremities: + edema (Trace edema bilaterally) Gastrointestinal (Abdomen) Inspection/Auscultation: + abdomen distended and normal bowel sounds Percussion/Palpation: abdomen soft; abdomen nontender (Minimally tender epigastrium and right lower quadrant), no guarding and abdomen not rigid Lymphatic no cervical or axillary lymphadenopathy Discharge Data Allergies Allergy/AdvReac Type Severity Reaction Status Date / Time grass pollen Allergy Congested, Unverified 02/02/21 21:49 Itchy eyes tree and shrub pollen Allergy Congested, Unverified 02/02/21 21:49 Itchy eyes weed pollen Allergy Congested,Itchy Unverified 02/02/21 21:49 eyes Consultations 02/02/21 22:29 ED Decision to Admit Stat 02/03/21 08:00 Consult Gastroenterology Routine Ordered Studies 02/02/21 20:40 CT abd pelvis IV con only Stat Hospital Course (1) Colitis: Admitted with the abdominal pain for the last 2 weeks with associated blood in the stool CT of the abdomen did not show distal descending colon colitis consistent with infectious/inflammatory CTA did not show any evidence of ischemic colitis Appreciate GI input and recommendation Has been on intravenous Cipro and Flagyl Clinically better and has been tolerating regular diet His C. difficile has been negative We will change antibiotic to oral Cipro and Flagyl and will be discharged home this afternoon (2) Acute GI bleeding: Has had rectal bleed, bright red blood GI input appreciated Awaiting stool testing Hemoglobin remains stable Remains on clears Possible colonoscopy if bleeding continues No more blood in the stool-he will have colonoscopy as an outpatient as planned (3) Hypertension: Blood pressure is controlled remains on the upper side Remains controlled (4) Morbid obesity with BMI of 45.0-49.9, adult: Counseling Strongly advised to follow diet and regular exercise to improve weight DVT prophylaxis-SCDs CODE STATUS Full Total Time Total Time Spent Total Time Spent (In Minutes): 35 minutes Discharge Plan Discharge Items Patient Disposition: Home - Self-Care Reason For Visit: ABDOMINAL PAIN Discharge Diagnosis: Descending colon colitis, acute GI bleed-stopped, hypertension Condition on Discharge: Fair Activity: Resume your previous activity Non-emergency contact: Primary Care Provider Call non-emergency contact if: you have any medication questions and your symptoms worsen Follow-up/Referrals: Ezequiel Hilton MD [Primary Care Provider] - (Please make an appointment with your primary care provider within 7 days. [facility] will call with an appointment for outpatient colonoscopy) Diet: Heart Healthy Addtl Attending Provider Instructions: Please take your medications as advised Please have follow-up appointments with your healthcare provider Pending Studies at Discharge: No Stand-Alone Forms: My [facility], Smoking Cessation Medications and DC Order Prescriptions: New metronidazole 500 mg Tablet 500 mg PO BID 8 Days Qty: 16 RF: 0 ciprofloxacin HCl 500 mg Tablet 500 mg PO BID 8 Days Qty: 16 RF: 0 pantoprazole 40 mg Tablet,Delayed Release (Dr/Ec) 40 mg PO DAILY 30 Days Qty: 30 RF: 0 Lactinex 1 million cell tablet,chewable 1 tab PO BID Qty: 30 RF: 0 Continued Unknown Cholesterol Medicine 0.5 tab PO DAILY RF: 0 Discontinued ibuprofen [Advil] 200 mg Tablet 200 mg PO Q6H PRN (Reason: Pain) RF: 0 Discharge Orders: Discharge Order (Routine); Ordered 02/05/21 Ordered By: Travis Brink/Other Patient Handouts: Bleeding Gastrointestinal Admission Data Admit Date/Time: 02/03/21 01:39 Attending Provider: Travis Chappell Admit Provider: Bert Kay Primary Care Provider: Ezequiel Hilton Other Providers: Bert Kay ; Shadi Marshall ; David Sagastume Other Interventions: Discharge Summary Assessment (RN) Last Done: 02/05/21 13:41
== END 2021-02-05 14:28 | disposition home or self-care (01) ==
LOC: ED 16:56 → INTOOBSV 02-03 01:39 → EDINP 02-03 01:39 → SUATTDRO 02-03 01:39 → 2S 02-03 03:30